=== PATIENT | female | born 1945 | race Caucasian/White ===

== ENCOUNTER 2021-02-28 12:37 | Observation (INO) | payer MEDICARE, SELFPAY ==
--- NOTE | ~2021-02-28 | CT_ITS ---
EXAMINATION: CT CERVICAL SPINE WITHOUT CONTRAST CLINICAL INFORMATION: Fall. Neck pain. COMPARISON: None TECHNIQUE: Axial images through the cervical spine without contrast. Sagittal and coronal reconstructions on the technologist workstation were performed. This CT examination was performed using dose optimization techniques as appropriate, variously including the following: *Automated exposure control *Adjustment of mA and/or kV according to patient size (this includes techniques or standardized protocols for targeted exams where dose is matched to indication/reason for exam; i.e. extremities or head) *Use of iterative reconstruction technique DLP: 485 mGy-cm FINDINGS: There is mild 2 mm anterolisthesis of C5 with respect to C4 and C6. Bone alignment is otherwise normal. No fracture or dislocation is seen. There is multilevel degenerative spondylosis and degenerative disc disease from C3-C4 to C7-T1. 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 There is bilateral multilevel facet arthritis. Prevertebral soft tissues are normal. There is bilateral carotid calcification. Visualized lung apices are clear. CT/CT cervical spine wo con IMPRESSION: Degenerative changes. No fracture or dislocation seen.
--- NOTE | ~2021-02-28 | CT_ITS ---
EXAMINATION: CT HEAD WITHOUT CONTRAST CLINICAL INFORMATION: Fall. Head injury. COMPARISON: None TECHNIQUE: Contiguous axial imaging was performed from the skull base to vertex without intravenous administration of contrast. This CT examination was performed using dose optimization techniques as appropriate, variously including the following: *Automated exposure control *Adjustment of mA and/or kV according to patient size (this includes techniques or standardized protocols for targeted exams where dose is matched to indication/reason for exam; i.e. extremities or head) *Use of iterative reconstruction technique DLP: 769 mGy-cm FINDINGS: There is no evidence of acute intracranial hemorrhage or territorial infarction. No abnormal mass effect or midline shift is seen. Cohen to white matter differentiation is well preserved. No extra-axial fluid collections are identified. The ventricles are normal in size. There is no abnormal attenuation within the brain parenchyma. There is hyperostosis. The osseous structures and soft tissues are otherwise normal. The mastoid air cells and visualized portions of the paranasal sinuses are well aerated. CT/CT head/brain wo con IMPRESSION: Unremarkable exam.
[2021-02-28 12:46] VITALS: BP 126/70; PULSE 82; O2SAT 95
--- NOTE | 2021-02-28 13:01 | ED_ITS ---
HPI - Fall General Chief Complaint: Fall Stated Complaint: psych eval Time Seen by Provider: 02/28/21 13:00 Source: patient and EMS Mode of arrival: EMS Limitations: no limitations History of Present Illness HPI Narrative: 76-year-old female came in by ambulance for evaluation after a mechanical fall. Patient was going down stair missed a step of stair fell down backward hitting her head, no LOC, no bleeding. Patient complains of slight headache, feeling dizzy when she sits up. Also complaining of slight neck pain, no weakness, no numbness. Patient is not reporting any new injuries. Related Data Allergies Allergy/AdvReac Type Severity Reaction Status Date / Time Penicillins Allergy Unknown Verified 02/28/21 12:47 Review of Systems Review of Systems: All other systems are reviewed and are negative Constitutional: Reports as per HPI and Reports no additional constitutional complaints Eyes: Reports as per HPI and Reports no additional eye complaints Reports system reviewed and no additional complaints, except as documented Cardiovascular: Reports as per HPI and Reports no additional cardiovascular complaints Respiratory: Reports as per HPI and Reports no additional respiratory complaints Gastrointestinal: Reports as per HPI and Reports no additional gastrointestinal complaints Genitourinary: Reports no additional female genitourinary complaints Musculoskeletal: Reports no additional musculoskeletal complaints Skin/Breast: Reports system reviewed and no additional complaints, except as docu Psychiatric: Reports no additional psychiatric complaints Endocrine: Reports no additional endocrine complaints Hematologic/Lymphatic: Reports no additional hematologic/lymphatic complaints Allergic/Immunologic: Reports no additional allergic/immunologic complaints Reports system reviewed and no additional complaints, except as documented and Reports Abnormal speech present [facility] Past Medical History Medical History Hypertension Social History Social History Alcohol intake: unknown Patient Tobacco Use Status: Never used Tobacco Use of substances other than those prescribed or required for medical reasons: No Advance Directives: No Advance Directives Information Provided: No Physical Exam Vital Signs: Vital Signs: Last Vital Signs Temp 98 F 02/28/21 13:09 Pulse 70 02/28/21 15:14 Resp 18 02/28/21 15:14 BP 146/65 H 02/28/21 15:14 Pulse Ox 96 02/28/21 15:14 Body Mass Index 34.7 Vital signs have been reviewed as appeared to be correct. Blood pressure normal. Heart rate normal. Respiration rate normal. Temperature normal. Oxygen saturation normal. Appearance: Alert. Oriented X3. No acute distress. Head: Normal external exam. Normocephalic. Atraumatic. No George signs noted. No raccoon eyes noted Eyes: PERRLA. EOMI. Conjunctiva and sclera normal. Eyelids normal. ENT: TM's Normal. Pharynx normal. Uvula midline. Moist mucous membranes. No trismus noted. No drooling noted. No muffled voice noted. Neck: Normal inspection. Neck supple. FROM. No adenopathy. Thyroid Normal. No meningeal signs. No neck mass noted. No step-off, no deformity, no midline tenderness. CVS: Normal heart rate and rhythm. Heart sound normal. No murmurs noted. Pulses normal throughout. Respiratory: No respiratory distress. Painless inspiration. Breath sounds normal. No wheezes/rales/rhonchi noted. Chest nontender. No accessory muscle usage noted or decreased air movement noted. Abdomen: Soft and nontender. Bowel sounds normal in all 4 quadrants. No distention noted. No organomegaly noted. No visible injury noted. Back: No CVA tenderness. Full range of motion noted. Skin: Skin warm and dry. Normal skin color. Normal skin turgor. No rashes/lesions/lacerations noted. Extremities: No lower extremity edema. Extremities exhibit normal range of motion. Extremities nontender. Neuro: Oriented X 3. Cranial nerve exam: II-XII are grossly intact No motor deficit. No sensory deficit. Reflexes normal. Course Course Course Narrative: Assessment and plan. 76-year-old female status post fall with head injury, GCS is 15, intact neuro exam was unremarkable head CT. Patient is able to ambulate in the emergency department with no apparent injury or deformity. Patient declined any SI or HI or hallucinations. Patient do not need psych evaluation as was posted on the chart by registration by mistake. Reevaluation(s) Reevaluation #1: Patient feel vertigo when she stand up, severe dizziness very unsteady on her feet unremarkable labs, unremarkable EKG, no chest pain or shortness of breath. Will admit for observation for patient vertigo, patient otherwise with normal neurological exam otherwise with no suspicion for stroke. MDM - Fall Medical Records Attestation: I reviewed the patient's medical records. Lab Data Attestation: I reviewed the patient's lab results. Result diagrams: 02/28/21 18:04 02/28/21 18:04 Labs: Lab Results 02/28/21 02/28/21 02/28/21 Range/Units 18:04 18:04 18:04 WBC 11.5 H (4.8-10.8) X10*3/uL RBC 3.93 L (4.20-5.50) X10*6/uL Hgb 12.2 (12.0-16.0) g/dl Hct 36.0 L (37.0-47.0) % MCV 91.6 (80.0-98.0) fL MCH 31.0 (27.0-33.0) pg MCHC 33.9 (31.0-35.0) g/dl RDW 12.9 (11.0-16.0) % Plt Count 197 (160-400) X10*3/uL MPV 10.0 (9.4-12.3) fL Immature Gran % (Auto) 0.4 (0.0-0.4) % Neut % (Auto) 89.6 H (45-73) % Lymph % (Auto) 6.5 L (20-40) % [place] % (Auto) 3.1 (2-11) % Eos % (Auto) 0.1 (0-4) % Baso % (Auto) 0.3 (0-2) % Lymph # (Auto) 0.8 L (1.2-4.9) X10*3/uL [place] # (Auto) 0.4 (0.1-1.2) X10*3/uL Eos # (Auto) 0.0 (0.0-0.4) X10*3/uL Baso # (Auto) 0.0 (0.0-0.2) X10*3/uL Abs Immat Gran (auto) 0.05 H (0.00-0.03) X10*3/uL Absolute Neuts (auto) 10.33 H (2.0-8.3) x10*3/uL Absolute Nucleated RBC 0.000 (0.0-0.012) X10*3/uL Nucleated RBC % (auto) 0.0 (0.0-0.2) /100WBC Sodium 139 (135-145) mmol/L Potassium 4.0 (3.3-5.1) mmol/L Chloride 107 (96-108) mmol/L Carbon Dioxide 25 (22-29) mmol/L Anion Gap 11 L (12-20) BUN 12 (9-16) mg/dL Creatinine 0.64 (0.5-1.4) mg/dL Estim Creat Clear Calc 88.0 Estimated GFR > 60 Random Glucose 151 H (60-115) mg/dL Calcium 9.1 (8.4-10.2) mg/dL Total Bilirubin 0.3 (0.0-1.0) mg/dL Direct Bilirubin < 0.2 (0.0-0.5) mg/dL AST 17 (5-31) U/L ALT 14 (0-31) U/L Alkaline Phosphatase 88 (39-117) U/L Troponin I High Sens < 3.5 (<3.5-17.0) ng/L Total Protein 5.9 L (6.5-8.0) g/dL Albumin 3.7 (3.5-5.0) g/dL Lipase 26 (8-78) U/L Imaging Data CT scan - head: Radiologist's impression: Unremarkable head exam Cervical spine CT: Radiologist's impression: Degenerative changes. No fracture or dislocation seen. ECG Data Attestation: I personally reviewed and interpreted this ECG as follows: Interpretation: Normal sinus rhythm at 65 beats per minutes, normal intervals, no ST-T changes. Discharge Plan Discharge Clinical Impression: Concussion without loss of consciousness, Post concussion syndrome Patient Disposition: Admitted As Inpatient
[2021-02-28 13:07] VITALS: BMI 34.7
[2021-02-28 13:09] VITALS: BP 143/63; PULSE 64; RESP 18; TEMP 36.6; O2SAT 95
[2021-02-28] MEDS: Meclizine HCl 25 MG TABLET PO (15:13)
[2021-02-28 15:14] VITALS: BP 146/65; PULSE 70; RESP 18; O2SAT 96
--- NOTE | 2021-02-28 15:16 | PC.NURSE ---
Attempted to discharge the patient, but pt states she is too dizzy and nauseous to get up. MD aware and pt medicated with meclizine. Will re-eval
[2021-02-28] MEDS: 0.9 % Sodium Chloride 1,000 ML 999 ML IVCONT (16:36)
[2021-02-28] MEDS: ondansetron HCL 4 MG/2 ML VIAL IVPUSH (16:37)
--- NOTE | 2021-02-28 16:38 | PC.NURSE ---
Pt ambulated to the bathroom and became dizzy and started vomiting. Pt has an IV, placed by EMS prior to arrival. Pt now has NS infusing and zofran.
--- NOTE | 2021-02-28 17:49 | ECG_ITS ---
Test Reason : DIZZINESS Blood Pressure : / mmHG Vent. Rate : 065 BPM Atrial Rate : 065 BPM P-R Int : 172 ms QRS Dur : 082 ms QT Int : 424 ms P-R-T Axes : -10 001 -07 degrees QTc Int : 440 ms Normal sinus rhythm Normal ECG No previous ECGs available Referred By: Aury Mar Electronically Signed By:DINA CARRILLO MD
[2021-02-28 18:09] LABS: Basophils Percent Auto 0.3 % (0-2); Eosinophils Percent Auto 0.1 % (0-4); Hemoglobin 12.2 g/dl (12.0-16.0); Imm Gran Abs Auto 0.05 X10*3/uL (0.00-0.03); Imm Gran Pct Auto 0.4 % (0.0-0.4); Lymphocytes Absolute Auto 0.8 X10*3/uL (1.2-4.9); Lymphocytes Percent Auto 6.5 % (20-40); MANUAL DIFF FLAG NO; Mean Corpuscular HGB Conc 33.9 g/dl (31.0-35.0); Mean Corpuscular Volume 91.6 fL (80.0-98.0); Monocytes Absolute Auto 0.4 X10*3/uL (0.1-1.2); Monocytes Percent Auto 3.1 % (2-11); Neutrophils Absolute Auto 10.33 x10*3/uL (2.0-8.3); Neutrophils Percent Auto 89.6 % (45-73); Platelet Count 197 X10*3/uL (160-400); Red Blood Count 3.93 X10*6/uL (4.20-5.50); Red Cell Distribution Width 12.9 % (11.0-16.0); White Blood Count 11.5 X10*3/uL (4.8-10.8)
--- NOTE | 2021-02-28 18:14 | PC.NURSE ---
Attempted to stand patient and she immediately felt like she was going to have a syncopal episode. Witnessed by MD who ordered an EKG and a labwork
[2021-02-28 18:27] LABS: Alanine Aminotransferase 14 U/L (0-31); Albumin Level 3.7 g/dL (3.5-5.0); Alkaline Phosphatase 88 U/L (39-117); Anion Gap 11 (12-20); Aspartate Amino Transferase 17 U/L (5-31); Bilirubin Direct < 0.2 mg/dL (0.0-0.5); Bilirubin Total 0.3 mg/dL (0.0-1.0); Blood Urea Nitrogen 12 mg/dL (9-16); Calcium 9.1 mg/dL (8.4-10.2); Carbon Dioxide 25 mmol/L (22-29); Chloride 107 mmol/L (96-108); Estimated Glomerular Filt Rate > 60; Glucose Random 151 mg/dL (60-115); Lipase 26 U/L (8-78); Sodium 139 mmol/L (135-145); Total Protein 5.9 g/dL (6.5-8.0)
[2021-02-28 18:29] LABS: Troponin-I High Sensitivity < 3.5 ng/L (<3.5-17.0)
--- NOTE | 2021-02-28 19:14 | P.HPHOSP_ITS ---
History of Present Illness Date of Service: 02/28/21 Chief Complaint: Fall 76-year-old female with a past medical history of hypertension presented to the hospital with a chief complaint of fall. Patient reported that she was walking and slipped the staff and suddenly fell, landed on the hips and hit her head on the back of the head; followed by she started all of dizziness and room spinning; associated nausea; mentions that her dizziness/vertigo worsens with movement/getting up; denies any chest pain or palpitations. Denies any fever chills cough. Denies any urinary symptoms. Review of all other systems is negative except mentioned above ER course: Per ER team patient's exam was nonfocal; CT head CT cervical spine negative for any fracture; patient continued to have symptoms and unsteady and a tried to walk; admitted to the hospital for further management PMFSH Medical History Hypertension Pertinent family history: reviewed Social History Alcohol intake: unknown Patient Tobacco Use Status: Never used Tobacco Use of substances other than those prescribed or required for medical reasons: No Advance Directives: No Advance Directives Information Provided: No Meds Allergies Allergy/AdvReac Type Severity Reaction Status Date / Time Penicillins Allergy Unknown Verified 02/28/21 12:47 Active Medications: Current Medications Acetaminophen (Acetaminophen 325 Mg Tablet) 650 mg PO Q6H PRN PRN Reason: Pain, Mild (Pain Scale 1-3) Melatonin (Melatonin 3 Mg Tablet) 6 mg PO BEDTIME PRN PRN Reason: Insomnia Senna (Sennosides 8.6 Mg Tablet) 17.2 mg PO BEDTIME PRN PRN Reason: Constipation Sodium Chloride (0.9 % Sodium Chloride Flush 3 Ml Syringe) 3 ml [facility] Medications Medication Instructions Recorded Confirmed Last Taken Type albuterol sulfate 90 mcg/actuation INHALATION 02/28/21 02/28/21 08:00 History aerosol inhaler atenolol 50 mg tablet 1 tab PO DAILY 02/28/21 02/28/21 02/28/21 08:00 History nitroglycerin 0.4 mg sublingual mg SUBLINGUAL BEDTIME 02/28/21 02/28/21 02/28/21 08:00 History tablet omeprazole 40 mg capsule,delayed 1 cap PO DAILY 02/28/21 02/28/21 02/28/21 08:00 History release Physical Exam Vital Signs and Narrative: Vital Signs: Last Vital Signs Temp 98 F 02/28/21 13:09 Pulse 70 02/28/21 15:14 Resp 18 02/28/21 15:14 BP 146/65 H 02/28/21 15:14 Pulse Ox 96 02/28/21 15:14 Body Mass Index 34.7 Gen: Appears be in no acute distress HEENT: NCAT, Moist mucosa. Pulmonary: Vesicular breath sounds, fair air entry CVS: Normal S1-S2 Abdomen: BS+, Soft, Nontender Extremities: Warm well perfused Neuro: Alert and awake.grossly nonfocal Results Labs CBC and Chem 7: 02/28/21 18:04 02/28/21 18:04 Labs: Laboratory Results - last 24 hr 02/28/21 02/28/21 02/28/21 18:04 18:04 18:04 MCV 91.6 MCH 31.0 MCHC 33.9 RDW 12.9 Plt Count 197 MPV 10.0 Immature Gran % (Auto) 0.4 Neut % (Auto) 89.6 H Lymph % (Auto) 6.5 L [place] % (Auto) 3.1 Eos % (Auto) 0.1 Baso % (Auto) 0.3 Lymph # (Auto) 0.8 L [place] # (Auto) 0.4 Eos # (Auto) 0.0 Baso # (Auto) 0.0 Abs Immat Gran (auto) 0.05 H Absolute Neuts (auto) 10.33 H Absolute Nucleated RBC 0.000 Nucleated RBC % (auto) 0.0 Anion Gap 11 L Estim Creat Clear Calc 88.0 Estimated GFR > 60 Random Glucose 151 H Calcium 9.1 Total Bilirubin 0.3 Direct Bilirubin < 0.2 AST 17 ALT 14 Alkaline Phosphatase 88 Troponin I High Sens < 3.5 Total Protein 5.9 L Albumin 3.7 Lipase 26 Imaging Radiologist's Impressions: Impressions Cervical Spine CT 02/28/21 13:00 IMPRESSION: Degenerative changes. No fracture or dislocation seen. Head CT 02/28/21 13:00 IMPRESSION: Unremarkable exam. Assessment and Plan (1) Concussion without loss of consciousness: Status: Acute (2) Dizziness: Status: Acute 76-year-old female with a past medical history of hypertension presented to the hospital with a chief complaint of fall. Started all dizziness. Admitted for further management. Dizziness/vertigo: Meclizine trial. Fall precautions. PT/OT. EKG nonischemic, troponin negative, CT head and CT cervical spine showed no acute findings; exam grossly nonfocal. History of hypertension: Continue home medications DVT prophylaxis: SCD boots Code status: Full code Quality Stroke Does the patient have a stroke diagnosis?: No VTE Prior VTE?: No VTE Risk Level:: Medical - low VTE Device Contraindication: N/A - Device Ordered VTE Drug Contraindication: Treatment Not Indicated
[2021-02-28 19:22] VITALS: BP 142/63; PULSE 81; RESP 14; TEMP 37.3; O2SAT 94
[2021-02-28 20:51] LABS: Appearance Urine CLEAR; Color Urine YELLOW; Glucose Urine UA NEG (NEG); Leukocyte Esterase Urine 2+ (NEG); Nitrite Urine NEG (NEG); UACC Culture Trigger YES; Urine Blood 3+ (NEG); Urine Ketones 5 MG/DL (NEG); Urine Protein NEG (NEG-TRACE)
[2021-02-28 21:15] LABS: Bacteria Urine TRACE /LPF; RBC Urine 30-49 /HPF (0); Squamous Epithelial Cell Urine TRACE /LPF
[2021-03-01] MEDS: 0.9 % Sodium Chloride Flush 3 ML SYRINGE IVFLUSH ×3 (04:38→15:28)
[2021-03-01 05:46] LABS: MANUAL DIFF FLAG NO
[2021-03-01 05:47] LABS: Basophils Percent Auto 0.3 % (0-2); Eosinophils Percent Auto 0.6 % (0-4); Hematocrit 35.7 % (37.0-47.0); Hemoglobin 11.8 g/dl (12.0-16.0); Imm Gran Abs Auto 0.02 X10*3/uL (0.00-0.03); Imm Gran Pct Auto 0.3 % (0.0-0.4); Lymphocytes Absolute Auto 1.1 X10*3/uL (1.2-4.9); Lymphocytes Percent Auto 15.1 % (20-40); Mean Corpuscular HGB Conc 33.1 g/dl (31.0-35.0); Mean Corpuscular Volume 93.7 fL (80.0-98.0); Mean Platelet Volume 10.1 fL (9.4-12.3); Monocytes Absolute Auto 0.5 X10*3/uL (0.1-1.2); Monocytes Percent Auto 7.2 % (2-11); Neutrophils Absolute Auto 5.54 x10*3/uL (2.0-8.3); Neutrophils Percent Auto 76.5 % (45-73); Platelet Count 200 X10*3/uL (160-400); Red Blood Count 3.81 X10*6/uL (4.20-5.50); Red Cell Distribution Width 13.2 % (11.0-16.0); White Blood Count 7.2 X10*3/uL (4.8-10.8)
[2021-03-01 06:00] LABS: Anion Gap 11 (12-20); Blood Urea Nitrogen 9 mg/dL (9-16); Calcium 9.3 mg/dL (8.4-10.2); Carbon Dioxide 28 mmol/L (22-29); Chloride 106 mmol/L (96-108); Estimated Glomerular Filt Rate > 60; Glucose Random 115 mg/dL (60-115); Sodium 141 mmol/L (135-145)
[2021-03-01 08:30] LABS: COVID-19 Test Negative (Negative)
--- NOTE | 2021-03-01 10:55 | MHC.CM.PN ---
Met with patient in regards to discharge planning. Patient lives with her , ambulates independently and had no services prior to coming to the hospital. No services anticipated to be needed because patient is not homebound. Patient lives in [place], but was in the are visiting with friends, when she tripped and fell. PCP verified as Dr Bhandari in [place], [place]. Copy of HCP obtained from [facility]. Obs notice explained and signed. Patient's or daughter will transport her home when medically stable. Continue to monitor for d/c needs.
--- NOTE | 2021-03-01 12:31 | PC.NURSE ---
call to s3 no answer
[2021-03-01 12:35] VITALS: BP 123/69; PULSE 90; RESP 16; TEMP 36.7; O2SAT 98
--- NOTE | 2021-03-01 13:23 | PC.NURSE ---
call to s3 for second time
[2021-03-01] MEDS: Acetaminophen 325 MG TABLET 650 MG PO (13:59)
--- NOTE | 2021-03-01 14:20 | P.PNIM_ITS ---
Subjective Subjective Date of Service: 03/01/21 Interval History: Improve since admit; continues to be somewhat lightheaded with positional changes Review of Systems Denies chest pain Denies shortness of breath Denies nausea vomiting diarrhea Physical Exam Vital Signs: Vital Signs: Last Vital Signs Temp 98.0 F 03/01/21 12:35 Pulse 90 03/01/21 12:35 Resp 16 03/01/21 12:35 BP 123/69 03/01/21 12:35 Pulse Ox 98 03/01/21 12:35 Body Mass Index 34.7 Const: Other: No acute issues Resp: Other: Clear to auscultation bilaterally. Cardio: Other: No S4; positive S1-S2; no S3 murmurs rubs gallops GI: Other: Soft nontender/nondistended; normoactive bowel sounds x4 quadrants Neuro: Other: Cranial nerves 2-12 grossly intact as tested; motor is 5/5 all extremities; sensation intact. Cognition appropriate Extrem: Other: No edema bilaterally Objective Data Active Medications Acetaminophen (Acetaminophen 325 Mg Tablet) 650 mg PO Q6H PRN PRN Reason: Pain, Mild (Pain Scale 1-3) Last Admin: 03/01/21 13:59 Dose: 650 mg Documented by: COTEMA Melatonin (Melatonin 3 Mg Tablet) 6 mg PO BEDTIME PRN PRN Reason: Insomnia Senna (Sennosides 8.6 Mg Tablet) 17.2 mg PO BEDTIME PRN PRN Reason: Constipation Sodium Chloride (0.9 % Sodium Chloride Flush 3 Ml Syringe) 3 ml IVFLUSH [facility] Last Admin: 03/01/21 07:30 Dose: 3 ml Documented by: KATARZYNA Labs CBC & Chem 7: 03/01/21 05:33 03/01/21 05:33 Labs: Laboratory Results - last 24 hr 02/28/21 02/28/21 02/28/21 18:04 18:04 18:04 MCV 91.6 MCH 31.0 MCHC 33.9 RDW 12.9 Plt Count 197 MPV 10.0 Immature Gran % (Auto) 0.4 Neut % (Auto) 89.6 H Lymph % (Auto) 6.5 L [place] % (Auto) 3.1 Eos % (Auto) 0.1 Baso % (Auto) 0.3 Lymph # (Auto) 0.8 L [place] # (Auto) 0.4 Eos # (Auto) 0.0 Baso # (Auto) 0.0 Abs Immat Gran (auto) 0.05 H Absolute Neuts (auto) 10.33 H Absolute Nucleated RBC 0.000 Nucleated RBC % (auto) 0.0 Anion Gap 11 L Estim Creat Clear Calc 88.0 Estimated GFR > 60 Random Glucose 151 H Calcium 9.1 Total Bilirubin 0.3 Direct Bilirubin < 0.2 AST 17 ALT 14 Alkaline Phosphatase 88 Troponin I High Sens < 3.5 Total Protein 5.9 L Albumin 3.7 Lipase 26 Urine Color Urine Appearance Urine pH Ur Specific [place] Urine Protein Urine Glucose (UA) Urine Ketones Urine Blood Urine Nitrite Ur Leukocyte Esterase Urine RBC Urine WBC Ur Squamous Epith Cells Urine Bacteria COVID-19 (SKIP) COVID-19 Clin Com 02/28/21 03/01/21 03/01/21 20:42 05:33 05:33 MCV 93.7 MCH 31.0 MCHC 33.1 RDW 13.2 Plt Count 200 MPV 10.1 Immature Gran % (Auto) 0.3 Neut % (Auto) 76.5 H Lymph % (Auto) 15.1 L [place] % (Auto) 7.2 Eos % (Auto) 0.6 Baso % (Auto) 0.3 Lymph # (Auto) 1.1 L [place] # (Auto) 0.5 Eos # (Auto) 0.0 Baso # (Auto) 0.0 Abs Immat Gran (auto) 0.02 Absolute Neuts (auto) 5.54 Absolute Nucleated RBC 0.000 Nucleated RBC % (auto) 0.0 Anion Gap 11 L Estim Creat Clear Calc 88.0 Estimated GFR > 60 Random Glucose 115 Calcium 9.3 Total Bilirubin Direct Bilirubin AST ALT Alkaline Phosphatase Troponin I High Sens Total Protein Albumin Lipase Urine Color YELLOW Urine Appearance CLEAR Urine pH 6.0 Ur Specific [place] 1.010 Urine Protein NEG Urine Glucose (UA) NEG Urine Ketones 5 Urine Blood 3+ H Urine Nitrite NEG Ur Leukocyte Esterase 2+ H Urine RBC 30-49 H Urine WBC 5-9 H Ur Squamous Epith Cells TRACE Urine Bacteria TRACE COVID-19 (SKIP) COVID-19 Clin Com 03/01/21 08:03 MCV MCH MCHC RDW Plt Count MPV Immature Gran % (Auto) Neut % (Auto) Lymph % (Auto) [place] % (Auto) Eos % (Auto) Baso % (Auto) Lymph # (Auto) [place] # (Auto) Eos # (Auto) Baso # (Auto) Abs Immat Gran (auto) Absolute Neuts (auto) Absolute Nucleated RBC Nucleated RBC % (auto) Anion Gap Estim Creat Clear Calc Estimated GFR Random Glucose Calcium Total Bilirubin Direct Bilirubin AST ALT Alkaline Phosphatase Troponin I High Sens Total Protein Albumin Lipase Urine Color Urine Appearance Urine pH Ur Specific [place] Urine Protein Urine Glucose (UA) Urine Ketones Urine Blood Urine Nitrite Ur Leukocyte Esterase Urine RBC Urine WBC Ur Squamous Epith Cells Urine Bacteria COVID-19 (SKIP) Negative COVID-19 Clin Com See Note Microbiology Microbiology Results: Microbiology 02/28/21 Unknown Urine Culture - Preliminary Urine clean catch - Urine amin top No growth to date. Assessment and Plan (1) Concussion without loss of consciousness: Status: Acute Assessment and Plan: 76-year-old female presents to the hospital after which she describes as mechanical fall striking her head. After the fall she states she was extremely dizzy was not able to walk without assistance. She also notes nausea without vomiting related to these issues. In the ER CT of the head and neck failed to demonstrate any acute pathology and patient will be admitted it is for symptomatic therapy and PT 1. Close head trauma CT negative. Will consult Neuro prior to ordering any further imaging studies. Will also consult Physical therapy. Of note patient states that she has had vertigo in the past but this does not feel similar 2. Hypertension Continue beta-amanda as outpatient adjust as indicated 3. GERD Continue PPI . Further plans based on clinical course and forthcoming data DVT: Vena dynes boots Full code Quality Stroke Does the patient have a stroke diagnosis?: No VTE Prior VTE?: No VTE Risk Level:: Medical - low VTE Device Contraindication: N/A - Device Ordered VTE Drug Contraindication: Treatment Not Indicated
--- NOTE | 2021-03-01 14:24 | PC.NURSE ---
Patient arrived on unit with no IV access. IV access placed by this RN.
[2021-03-01 15:26] VITALS: BP 133/72; PULSE 82; RESP 16; TEMP 36.8; O2SAT 96
[2021-03-01 15:27] VITALS: BP 133/72; PULSE 83
[2021-03-01] MEDS: atenoloL 50 MG TABLET PO (15:27)
[2021-03-01 19:15] VITALS: BP 135/60; PULSE 70; RESP 15; TEMP 36.6; O2SAT 97
[2021-03-01 23:53] VITALS: BP 130/58; PULSE 69; RESP 16; TEMP 36.4; O2SAT 94
[2021-03-02] MEDS: 0.9 % Sodium Chloride Flush 3 ML SYRINGE IVFLUSH ×2 (02:08→08:11)
[2021-03-02 03:47] VITALS: BP 131/63; PULSE 70; RESP 18; TEMP 36.5; O2SAT 95
[2021-03-02 05:55] LABS: MANUAL DIFF FLAG NO
[2021-03-02 06:10] LABS: Basophils Percent Auto 0.6 % (0-2); Eosinophils Absolute Auto 0.2 X10*3/uL (0.0-0.4); Eosinophils Percent Auto 4.4 % (0-4); Hematocrit 35.8 % (37.0-47.0); Imm Gran Abs Auto 0.01 X10*3/uL (0.00-0.03); Imm Gran Pct Auto 0.2 % (0.0-0.4); Lymphocytes Absolute Auto 1.3 X10*3/uL (1.2-4.9); Lymphocytes Percent Auto 26.1 % (20-40); Mean Corpuscular HGB Conc 33.5 g/dl (31.0-35.0); Mean Corpuscular Hemoglobin 31.3 pg (27.0-33.0); Mean Corpuscular Volume 93.5 fL (80.0-98.0); Monocytes Absolute Auto 0.5 X10*3/uL (0.1-1.2); Monocytes Percent Auto 10.2 % (2-11); Neutrophils Absolute Auto 2.91 x10*3/uL (2.0-8.3); Neutrophils Percent Auto 58.5 % (45-73); Platelet Count 208 X10*3/uL (160-400); Red Blood Count 3.83 X10*6/uL (4.20-5.50); Red Cell Distribution Width 13.2 % (11.0-16.0)
[2021-03-02 06:17] LABS: Alanine Aminotransferase 12 U/L (0-31); Albumin Level 3.3 g/dL (3.5-5.0); Alkaline Phosphatase 77 U/L (39-117); Anion Gap 11 (12-20); Aspartate Amino Transferase 17 U/L (5-31); Bilirubin Total 0.2 mg/dL (0.0-1.0); Blood Urea Nitrogen 9 mg/dL (9-16); Carbon Dioxide 29 mmol/L (22-29); Chloride 105 mmol/L (96-108); Creatinine Clr Calc Pharmacy 82.9; Estimated Glomerular Filt Rate > 60; Glucose Fasting 116 mg/dL (60-99); Sodium 141 mmol/L (135-145); Total Protein 5.5 g/dL (6.5-8.0)
[2021-03-02] MEDS: Omeprazole 40 MG CAPSULE.DR PO (06:23)
[2021-03-02 07:20] VITALS: BP 143/72; PULSE 72; RESP 18; TEMP 36.4; O2SAT 97
[2021-03-02 08:11] VITALS: BP 143/72; PULSE 72
[2021-03-02] MEDS: atenoloL 50 MG TABLET PO (08:11)
[2021-03-02] MEDS: Acetaminophen 325 MG TABLET 650 MG PO (08:14)
[2021-03-02 11:26] VITALS: BP 133/64; PULSE 68; RESP 17; TEMP 36.9; O2SAT 96
--- NOTE | 2021-03-02 11:44 | MHC.CM.PN ---
HUYNH 03/01/21 FEMALE S/P FALL/DIZZINESS IS DISCHARGED TODAY TO HOME. NO SERVICES ORDERED OR NEEDED. FAMILY IS PROVIDING TRANSPORT.
--- NOTE | 2021-03-02 14:20 | P.DS_ITS ---
DS: Providers Provider Date of Service: 03/02/21 Date of admission: 02/28/21 19:11 Primary care physician: Unknown Physician Consults: 03/01/21 15:04 Consult to Neurology Routine Consulting Provider: [facility] Reason for consultation: Ataxia DS: Diagnosis Discharge Diagnosis (1) Concussion without loss of consciousness: Status: Acute DS: Summary Hospital Course Hospital Course: 76-year-old female presents to the hospital after which she describes as mechanical fall striking her head.? After the fall she states she was extremely dizzy was not able to walk without assistance.? She also notes nausea without vomiting related to these issues.? In the ER CT of the head and neck failed to demonstrate any acute pathology and patient will be admitted it is for symptomatic therapy and PT Hospital course Over the next 36 hours patient continue to improve was ambulating in her room by herself. At this point in time she is anxious to leave and without focal defects; do not believe she needs PT eval at this time. Will discharge to home without changes in current therapies Time Spent with Patient Time attestation: Total time spent providing and/or coordinating discharge services: Discharge coordination time: Greater than 30 minutes Quality: Stroke Does the patient have a stroke diagnosis?: No Physical Exam Vital Signs: Vital Signs: Last Vital Signs Temp 98.4 F 03/02/21 11:26 Pulse 68 03/02/21 11:26 Resp 17 03/02/21 11:26 BP 133/64 03/02/21 11:26 Pulse Ox 96 03/02/21 11:26 Body Mass Index 34.7 Const: Other: No acute issues Resp: Other: Clear to auscultation bilaterally. Cardio: Other: No S4; positive S1-S2; no S3 murmurs rubs gallops GI: Other: Soft nontender/nondistended; normoactive bowel sounds x4 quadrants Neuro: Other: Cranial nerves 2-12 grossly intact as tested; motor is 5/5 all extremities; sensation intact. Cognition appropriate Extrem: Other: No edema bilaterally DS: Data Data Completed and Pending Labs on day of discharge: Laboratory Results - last 24 hr 03/02/21 03/02/21 05:18 05:18 WBC 5.0 RBC 3.83 L Hgb 12.0 Hct 35.8 L MCV 93.5 MCH 31.3 MCHC 33.5 RDW 13.2 Plt Count 208 MPV 10.0 Immature Gran % (Auto) 0.2 Neut % (Auto) 58.5 Lymph % (Auto) 26.1 [place] % (Auto) 10.2 Eos % (Auto) 4.4 H Baso % (Auto) 0.6 Lymph # (Auto) 1.3 [place] # (Auto) 0.5 Eos # (Auto) 0.2 Baso # (Auto) 0.0 Abs Immat Gran (auto) 0.01 Absolute Neuts (auto) 2.91 Absolute Nucleated RBC 0.000 Nucleated RBC % (auto) 0.0 Sodium 141 Potassium 4.0 Chloride 105 Carbon Dioxide 29 Anion Gap 11 L BUN 9 Creatinine 0.68 Estim Creat Clear Calc 82.9 Estimated GFR > 60 Fasting Glucose 116 H Calcium 9.0 Total Bilirubin 0.2 AST 17 ALT 12 Alkaline Phosphatase 77 Total Protein 5.5 L Albumin 3.3 L Discharge Plan Discharge Patient Disposition: Home, Self-Care Referrals: Physician,Unknown J [Primary Care Provider] - 2 days Discharge Medications: Continued omeprazole 40 mg capsule,delayed release(DR/EC) 1 cap PO DAILY RF: 0 nitroglycerin 0.4 mg tablet, sublingual 0.4 mg sublingual Q5M PRN (Reason: Angina) RF: 0 albuterol sulfate 90 mcg/actuation HFA aerosol inhaler 1 puff inhalation Q4-6H RF: 0 atenolol 50 mg tablet 1 tab PO DAILY RF: 0 Discharge Orders: Discharge Order (Routine); Ordered 03/02/21 Ordered By: Oscar Sweet Diet: advance to usual diet Activity on Discharge: As tolerated Stand Alone Forms: Patient Portal Discharge page Care Plan Goals: Continue current therapies Health Concerns: Maintained highest level of function Plan of Treatment: Resume home regimen Assessment: Improved since baseline Patient Instructions: Head Injury (ED)
== END 2021-03-02 14:47 | disposition home or self-care (01) ==
LOC: HO.ED 19:03 → HO.EDOVER 19:17 → HO.S3 03-01 12:27
PROVIDERS: Admitting Provider Hospitalist; Emergency Provider Emergency Medicine; PCP Family Medicine; Visit Provider Hospitalist
DX: S06.0X0A Concussion without loss of consciousness, initial encounter (principal); W18.09XA Striking against other object with subsequent fall, initial encounter; Y93.01 Activity, walking, marching and hiking; Y92.22 Religious institution as the place of occurrence of the external cause; Y99.9 Unspecified external cause status; Z20.822 Contact with and (suspected) exposure to COVID-19; Z88.0 Allergy status to penicillin; Z79.899 Other long term (current) drug therapy
CPT/HCPCS: 36415; 70450; 72125; 80048; 80053; 80076; 81001; 83690; 84484; 85025; 87086; 87635; 93005; 96361; 96374; 99218; 99285; J2405